=== PATIENT | male | born 1965 | race Caucasian/White ===

== ENCOUNTER 2017-09-21 06:40 | Day surgery (SDC) | payer OTHER ==
[2017-09-21] MEDS ORDERED: ECOTRIN PO ONE (07:22)
[2017-09-21 07:53] LABS: Basophils # (Auto) 0.1 K/mm3 (0.0-0.1); Basophils % (Auto) 0.8 % (0.0-1.8); Eosinophils # (Auto) 0.9 K/mm3 (0.0-0.4); Eosinophils % (Auto) 12.5 % (0.0-4.3); Hematocrit 45.7 % (35.5-45.6); Hemoglobin 15.3 gm/dl (11.8-15.2); Lymphocytes # (Auto) 2.2 K/mm3 (1.2-5.4); Lymphocytes % (Auto) 30.2 % (13.4-35.0); Mean Corpuscular HGB Conc 34 % (32-34); Mean Corpuscular Hemoglobin 32 pg (28-32); Mean Corpuscular Volume 94 fl (84-94); Monocytes # (Auto) 0.5 K/mm3 (0.0-0.8); Monocytes % (Auto) 6.3 % (0.0-7.3); Platelet Count 208 K/mm3 (140-440); Red Blood Count 4.85 M/mm3 (3.65-5.03); Red Cell Distribution Width 13.6 % (13.2-15.2)
[2017-09-21] MEDS ORDERED: NACL 0.9% 500 ML 500 ML IV SCH (08:00)
[2017-09-21 08:03] LABS: INR 0.86 (0.87-1.13)
[2017-09-21 08:05] LABS: BUN/Creatinine Ratio 16; Blood Urea Nitrogen 13 mg/dL (9-20); Hemolysis Index 7
[2017-09-21] MEDS ORDERED: CALAN ONE (08:28)
[2017-09-21] MEDS ORDERED: XYLOCAINE 2% INFILTRATI ONE (08:28)
[2017-09-21] MEDS ORDERED: HEPARIN 10,000 UNITS/10 ML ONE (08:28)
[2017-09-21] MEDS ORDERED: HEPARIN/NS 5000 UNIT/500ML(CATH LAB) 1,000 ML IR ONE (08:28)
[2017-09-21] MEDS ORDERED: VERSED ONE (08:29)
[2017-09-21] MEDS ORDERED: SUBLIMAZE ONE (08:30)
[2017-09-21] MEDS: NITROGLYCERIN SYRINGE 3 ML ONE ×2 (09:14→09:19)
--- NOTE | 2017-09-21 10:08 | Short Stay Summary ---
Short Stay Documentation Date of service: 09/21/17 - History H&P: obtained from office - Allergies and Medications Current Medications: Allergies No Known Allergies Allergy (Verified 09/21/17 07:26) Home Medications Medication Instructions Recorded Confirmed Last Taken Type Aclidinium [place] [Tudorza 400 mcg IH QAM 09/21/17 09/21/17 09/20/17 History Pressair] Aspirin [Lo-Dose Aspirin EC] 81 mg PO DAILY 09/21/17 09/21/17 09/20/17 History Ergocalciferol [Vitamin D2] 1 cap PO QWEEK 09/21/17 09/21/17 09/19/17 History ISOSORBIDE MONOnitrate [Imdur ER] 30 mg PO DAILY 09/21/17 09/21/17 09/20/17 History Nebivolol HCl [Bystolic] 5 mg PO DAILY 09/21/17 09/21/17 09/20/17 History Omeprazole [Omeprazole] 20 mg PO DAILY 09/21/17 09/21/17 09/20/17 History Valsartan [Diovan] 80 mg PO DAILY 09/21/17 09/21/17 09/20/17 History Active Medications Sodium Chloride (Nacl 0.9% 500 Ml) 500 mls @ 50 mls/hr IV DIRECT MELO Stop: 09/21/17 17:59 Last Admin: 09/21/17 07:42 Dose: 50 mls/hr - Physical exam General appearance: no acute distress Integumentary: no rash HEENT: Atraumatic Lungs: Clear to auscultation Breasts: deferred Heart: Regular rate Gastrointestinal: normal Male Genitourinary: deferred Female Genitourinary: deferred Rectal Exam: deferred Extremities: no ischemia Neurological: Normal gait - Brief post op/procedure progress note Date of procedure: 09/21/17 Pre-op diagnosis: Stable angina Post-op diagnosis: same Procedure: LHC and LV gram Anesthesia: MAC Findings: See report Surgeon: BLANCA SETH Estimated blood loss: none Pathology: none Condition: stable - Hospital course Hospital course: Uneventful - Disposition Condition at discharge: Good Disposition: [id number] ANOTHER [facility] Short Stay Discharge Plan Follow up with: ANA CORRIGAN MD [Primary Care Provider] - 7 Days
[2017-09-21] MEDS ORDERED: HABITROL TD ONE (12:00)
[2017-09-21 15:08] VITALS: BP 139/80
--- NOTE | 2017-09-21 18:26 | Cardiac Catherization Report ---
ORDERING PHYSICIAN: Albina Giraldo MD INDICATION FOR PROCEDURE: Stable angina, [place] class 2 with a high-risk myocardial perfusion imaging scan. PROCEDURES PERFORMED: 1. Selective left and right coronary angiography. 2. Left ventriculography. DESCRIPTION OF PROCEDURE: 1. After obtaining the consent, the patient was draped using sterile technique. 2. A 2% lidocaine was injected into the right wrist. 3. A 6-[place] vascular sheath was inserted into the right radial artery. 4. A 6-[place] JL4 catheter was used to selectively engage the left coronary artery. 5. A 6-[place] JR4 catheter was used to selectively engage the right coronary artery. 6. A 6-[place]aur[place] pigtail catheter was used to perform a left ventriculogram. 7. No complications occurred during the procedure. 8. Hemostasis was achieved at the end of the procedure using manual pressure. SPECIMEN REMOVED: None. ESTIMATED BLOOD LOSS: Minimal. FINDINGS: HEMODYNAMICS: Aortic pressure is 148/80, left ventricular systolic pressure is 144 mmHg. Left ventricular end diastolic pressure is 19 mmHg. CARDIAC STRUCTURES: The left ventricle is normal in size and systolic function. The left ventricular ejection fraction, it is estimated at 60%. CORONARY ANATOMY: 1. This is a right dominant circulation. 2. The left main is angiographically normal. 3. The left anterior descending artery is 100% occluded proximally. There is reconstitution of the mid and distal LAD via left to left and right to left collaterals. There is evidence of diffuse 50% stenosis noted throughout the mid and distal LAD. There is evidence of an 80% stenosis noted in the middle segment of a moderate caliber-sized ramus intermedius. 4. There is evidence of sequential 80 and 90% stenoses involving the proximal and mid segment of the first obtuse marginal. 5. The right coronary artery is dominant. There is 100% occlusion of the proximal right coronary artery. The right coronary artery distally is filled via collaterals from the LAD. IMPRESSION: 1. Severe three-vessel disease. 2. 100% proximal left anterior descending artery, 80% ramus intermedius, 80 to 90% first obtuse marginal, and 100% right coronary artery. 3. Evidence of left to left collateral supplying the left anterior descending artery. 4. Evidence of left to right collateral supplying the distal right coronary artery. 4. Normal left ventricular ejection fraction. 5. Left ventricular end-diastolic pressure measured at 19 mmHg. RECOMMENDATIONS: Proceed with coronary artery bypass grafting. JOB# [id number] MICHELLE/KEVON
== END 2017-09-21 15:05 | disposition other institution (70) ==
LOC: CATHLABREC 06:40
PROVIDERS: ATTEND Internal Medicine
DX: I25.118 Atherosclerotic heart disease of native coronary artery with other forms of angina pectoris (principal); Z79.82 Long term (current) use of aspirin; Z79.899 Other long term (current) drug therapy; Z79.01 Long term (current) use of anticoagulants
CPT/HCPCS: 36415; 80048; 85025; 85610; 85730; 93005; 93010; 93458; 99156; C1894; J1644; J2250; J3010; J7040; Q9967